=== PATIENT | female | born 1985 | race Caucasian/White ===

== ENCOUNTER 2024-10-09 21:37 | Emergency (ER) | payer OTHER ==
--- NOTE | 2024-10-09 21:51 | ED ---
Female Urogenital HPI - General Source: patient, RN notes reviewed Mode of arrival: EMS <Dhara Alanis - Last Filed: 10/09/24 23:44> <Angely Peralta - Last Filed: 10/10/24 00:24> - General Chief complaint: Vaginal Bleeding Stated complaint: Transfer Time Seen by Provider: 10/09/24 21:42 - History of Present Illness Initial comments: This is a 39-year-old female with a history of hepatitis C, [id number], presenting to the emergency department from [facility] with concerns of vaginal bleeding. Patient states over the past 2 days she has had light vaginal spotting however today has been having heavy vaginal bleeding with passage of clots. She denies abdominal pain, suprapubic/pelvic cramping, dysuria, increased urinary frequency or urgency, flank pain, vaginal discharge or odor. 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 She states that she had a bite injury of her labia minora that occurred in May that has never been evaluated. Patient d enies fevers, chills, nausea or vomiting. ParaGard IUD in place. (Dhara Alanis) - Related Data Allergies Allergy/AdvReac Type Severity Reaction Status Date / Time Penicillins Allergy Anaphylaxis Verified 10/09/24 21:44 Review of Systems ROS Other: All systems not noted in ROS Statement are negative. <Dhara Alanis - Last Filed: 10/09/24 23:44> ROS Other: All systems not noted in ROS Statement are negative. <Angely Peralta - Last Filed: 10/10/24 00:24> ROS Statement: Those systems with pertinent positive or pertinent negative responses have been documented in the HPI. Past Medical History Additional Past Medical History / Comment(s): Hep C, past IV drug use-sober since 10/02/24 Past Surgical History: Cholecystectomy Past Psychological History: Bipolar Smoking Status: Current every day smoker Past Drug Use History: IV Drug Use <Dhara Alanis - Last Filed: 10/09/24 23:44> General Exam General appearance: alert, in no apparent distress Neck exam: Present: normal inspection. Absent: tenderness, meningismus, lymphadenopathy Respiratory exam: Present: normal lung sounds bilaterally. Absent: respiratory distress, wheezes, rales, rhonchi, stridor Cardiovascular Exam: Present: regular rate, normal rhythm, normal heart sounds. Absent: systolic murmur, diastolic murmur, rubs, gallop, clicks GI/Abdominal exam: Present: soft, normal bowel sounds. Absent: distended, tenderness, guarding, rebound, rigid Speculum exam: Present: vaginal bleeding. Absent: vaginal discharge, cervical discharge, foreign body By manual exam: Present: normal by manual exam. Absent: cervical motion tenderness, adnexal tenderness Extremities exam: Present: normal inspection, full ROM, normal capillary refill. Absent: tenderness, pedal edema, joint swelling, calf tenderness Back exam: Present: normal inspection. Absent: CVA tenderness (R), CVA tenderness (L) Skin exam: Present: warm, dry, intact, normal color. Absent: rash <Dhara Alanis - Last Filed: 10/09/24 23:44> Course Vital Signs 10/09/24 10/09/24 21:38 22:59 Temperature 98.3 F Pulse Rate 72 79 Respiratory 18 18 Rate Blood Pressure 151/111 160/85 O2 Sat by Pulse 99 99 Oximetry Medical Decision Making - Lab Data Result diagrams: 10/09/24 22:37 10/09/24 22:37 <Dhara Alanis - Last Filed: 10/09/24 23:44> - Lab Data Result diagrams: 10/09/24 22:37 10/09/24 22:37 <Angely Peralta - Last Filed: 10/10/24 00:24> - Medical Decision Making Was pt. sent in by a medical professional or institution ([facility], [facility], urgent care, hospital, or [place]...) When possible be specific @ -Patient was sent in by [facility] with concerns for vaginal bleeding. Did you speak to anyone other than the patient for history (EMS, parent, family, police, friend...)? What history was obtained from this source @ -[No] Did you review nursing and triage notes (agree or disagree)? Why? @ -[I reviewed and agree with nursing and triage notes] Were old charts reviewed (outside hosp., previous admission, EMS record, old EKG, old radiological studies, urgent care reports/EKG's, [place] health [place] records)? Report findings @ -[No old charts were reviewed] Differential Diagnosis (chest pain, altered mental status, abdominal pain women, abdominal pain men, vaginal bleeding, weakness, fever, dyspnea, syncope, headache, dizziness, GI bleed, back pain, seizure, CVA, palpatations, mental health, musculoskeletal)? @ -Differential Vaginal Bleeding: Spontaneous , threatened , molar , ectopic , bloody show, incompetent cervix, abruptioplacenta, placenta previa, uterine rupture, dysfunctional uterine bleeding, hemorrhage, uterine fibroids, this is not meant to be an all-inclusive list. EKG interpreted by me (3pts min.). @ -none X-rays interpreted by me (1pt min.). @ -[None done] CT interpreted by me (1pt min.). @ -[None done] U/S interpreted by me (1pt. min.). @ -[None done] What testing was considered but not performed or refused? (CT, X-rays, U/S, labs)? Why? @ -[None] What meds were considered but not given or refused? Why? @ -[None] Did you discuss the management of the patient with other professionals (professionals i.e. , PA, [facility], lab, RT, psych nurse, social service director, foundation relations director, teacher, control officer manager, case operator)? Give summary @ -[No] Was smoking cessation discussed for >3mins.? @ -[No] Was critical care preformed (if so, how long)? @ -[No] Were there social determinants of health that impacted care today? How? (Homelessness, low income, unemployed, alcoholism, drug addiction, transportation, low edu. Level, literacy, decrease access to med. care, snf, rehab)? @ -[No] Was there de-escalation of care discussed even if they declined (Discuss DNR or withdrawal of care, Hospice)? DNR status @ -[No] What co-morbidities impacted this encounter? (DM, HTN, Smoking, COPD, CAD, Cancer, CVA, ARF, Chemo, Hep., AIDS, mental health diagnosis, sleep apnea, morbid obesity)? @ -[None] Was patient admitted / discharged? Hospital course, mention meds given and route, prescriptions, significant lab abnormalities, going to OR and other pertinent info. @ -39-year-old female presenting to the emergency department from [facility] for menorrhagia. Patient is hypertensive on arrival with blood pressure 151/111. Abdominal examination completed with no tenderness. Pelvic examination completed with nurse Villegas at bedside reveals vaginal bleeding with a right sided labia majora deformity with no signs of infection, purulence. Patient was offered pain medication however declined saying that she is in no pain. CBC reveals a stable hemoglobin of 12.1. patient is signed out to Angely Peralta PA-C pending UA and US results and disposition. Undiagnosed new problem with uncertain prognosis? @ -[No] Drug Therapy requiring intensive monitoring for toxicity (Heparin, Nitro, Insulin, Cardizem)? @ -[No] Were any procedures done? @ -[No] Diagnosis/symptom? @ -[default] Acute, or Chronic, or Acute on Chronic? @ -[default] Uncomplicated (without systemic symptoms) or Complicated (systemic symptoms)? @ -[default] Side effects of treatment? @ -[No] Exacerbation, Progression, or Severe Exacerbation? @ -[No] Poses a threat to life or bodily function? How? (Chest pain, [place], [place], pneumonia, PE, COPD, DKA, ARF, appy, cholecystitis, CVA, Diverticulitis, Homicidal, Suicidal, threat to staff... and all critical care pts) @ -[No] (Dhara Alanis) Was pt. sent in by a medical professional or institution ([facility], [facility], urgent care, hospital, or [place]...) When possible be specific @ -Sent by [facility] Did you speak to anyone other than the patient for history (EMS, parent, family, police, friend...)? What history was obtained from this source @ -No Did you review nursing and triage notes (agree or disagree)? Why? @ -I reviewed and agree with nursing and triage notes Were old charts reviewed (outside hosp., previous admission, EMS record, old EKG, old radiological studies, urgent care reports/EKG's, [place] records)? Report findings @ -No old charts were reviewed Differential Diagnosis (chest pain, altered mental status, abdominal pain women, abdominal pain men, vaginal bleeding, weakness, fever, dyspnea, syncope, headache, dizziness, GI bleed, back pain, seizure, CVA, palpatations, mental h ealth, musculoskeletal)? @ -Differential Vaginal Bleeding: Spontaneous , threatened , molar , ectopic , bloody show, incompetent cervix, abruptioplacenta, placenta previa, uterine rupture, dysfunctional uterine bleeding, hemorrhage, uterine fibroids, this is not meant to be an all-inclusive list. EKG interpreted by me (3pts min.). @ -None X-rays interpreted by me (1pt min.). @ -None done CT interpreted by me (1pt min.). @ -None done U/S interpreted by me (1pt. min.). @ -Pelvic ultrasound reveals no acute process What testing was considered but not performed or refused? (CT, X-rays, U/S, labs)? Why? @ -None What meds were considered but not given or refused? Why? @ -None Did you discuss the management of the patient with other professionals (pr ofessionals i.e. , PA, [employer] [facility], lab, RT, psych nurse, social service director, foundation relations director, teacher, control officer manager, case operator)? Give summary @ -No Was smoking cessation discussed for >3mins.? @ -No Was critical care preformed (if so, how long)? @ -No Were there social determinants of health that impacted care today? How? (Homelessness, low income, unemployed, alcoholism, drug addiction, transportation, low edu. Level, literacy, decrease access to med. care, snf, rehab)? @ -No Was there de-escalation of care discussed even if they declined (Discuss DNR or withdrawal of care, Hospice)? DNR status @ -No What co-morbidities impacted this encounter? (DM, HTN, Smoking, COPD, CAD, Cancer, CVA, ARF, Chemo, Hep., AIDS, mental health diagnosis, sleep apnea, morbid obesity)? @ -None Was patient admitted / discharged? Hospital course, mention meds given and route, prescriptions, significant lab abnormalities, going to OR and other pertinent info. @ -Discharge. 39-year-old female presenting for heavy vaginal bleeding x 1 day. Patient is signed out to me pending pelvic ultrasound and disposition. Lab work largely unremarkable. Hemoglobin stable at 12. Urine negative. Urinalysis reveals large amount of blood no indication of urinary tract infection. Pelvic ultrasound reveals no acute process. Discussed negative results with patient. Discussed diagnosis of menorrhagia. Appropriate return precautions and follow-up care discussed. Patient is agreeable to plan. Case was discussed with my ED attending Dr. Flannery. Undiagnosed new problem with uncertain prognosis? @ -No Drug Therapy requiring intensive monitoring for toxicity (Heparin, Nitro, Insulin, Cardizem)? @ -No Were any procedures done? @ -No Diagnosis/symptom? @ -Menorrhagia Acute, or Chronic, or Acute on Chronic? @ -Acute Uncomplicated (without systemic symptoms) or Complicated (systemic symptoms)? @ -Uncomplicated Side effects of treatment? @ -No Exacerbation, Progression, or Severe Exacerbation? @ -No Poses a threat to life or bodily function? How? (Chest pain, [place], [place], pneumonia, PE, COPD, DKA, ARF, appy, cholecystitis, CVA, Diverticulitis, Homicidal, Suicidal, threat to staff... and all critical care pts) @ -No (Angely Peralta) - Lab Data Lab Results 10/09/24 10/09/24 10/09/24 Range/Units 22:37 22:37 22:37 WBC 8.54 (4.50-10.00) 10*3/uL RBC 3.90 L (4.10-5.20) 10*6/uL Hgb 12.1 (12.0-15.0) g/dL Hct 35.9 L (37.2-46.3) % MCV 92.1 (80.0-97.0) fL MCH 31.0 (27.0-32.0) pg MCHC 33.7 (32.0-37.0) g/dL Plt Count 403 (140-440) 10*3/uL MPV 9.2 L (9.5-12.2) fL Immature Gran % (Auto) 0.2 % Neutrophils % 48.7 % Lymphocytes % 38.8 % Monocytes % 10.2 % Eosinophils % 1.6 % Basophils % 0.5 % Immature Gran # 0.02 (0.00-0.04) 10*3/uL Neutrophils # 4.16 (1.80-7.70) 10*3/uL Lymphocytes # 3.31 (0.90-5.00) 10*3/uL Monocytes # 0.87 (0.20-1.00) 10*3/uL Eosinophils # 0.14 (0.04-0.35) 10*3/uL Basophils # 0.04 (0.00-0.10) 10*3/uL Sodium (137-145) mmol/L Potassium (3.5-5.1) mmol/L Chloride (98-107) mmol/L Carbon Dioxide (22-30) mmol/L Anion Gap mmol/L BUN (7-17) mg/dL Creatinine (0.52-1.04) mg/dL Est GFR (CKD-EPI)AfAm (>60 ml/min/1.73 sqM) Est GFR (CKD-EPI)NonAf (>60 ml/min/1.73 sqM) Glucose (74-99) mg/dL Calcium (8.4-10.2) mg/dL Total Bilirubin (0.2-1.3) mg/dL AST (14-36) U/L ALT (4-34) U/L Alkaline Phosphatase (38-126) U/L Total Protein (6.3-8.2) g/dL Albumin (3.5-5.0) g/dL HCG, Quant mIU/mL Urine Color Light Yellow Urine Appearance Clear (Clear) Urine pH 5.5 (5.0-8.0) Ur Specific Weld 1.021 (1.001-1.035) Urine Protein Negative (Negative) Urine Glucose (UA) Negative (Negative) Urine Ketones Negative (Negative) Urine Blood Large H (Negative) Urine Nitrite Negative (Negative) Urine Bilirubin Negative (Negative) Urine Urobilinogen <2.0 (<2.0) mg/dL Ur Leukocyte Esterase Negative (Negative) Urine RBC >182 H (0-5) /hpf Urine WBC <1 (0-5) /hpf Ur Squamous Epith Cells 1 (0-4) /hpf Urine Mucus Rare H (None) /hpf Urine Yeast (Budding) Occasional H (None) /hpf Urine HCG, Qual Not Detected (Not Detectd) 10/09/24 Range/Units 22:37 WBC (4.50-10.00) 10*3/uL RBC (4.10-5.20) 10*6/uL Hgb (12.0-15.0) g/dL Hct (37.2-46.3) % MCV (80.0-97.0) fL MCH (27.0-32.0) pg MCHC (32.0-37.0) g/dL Plt Count (140-440) 10*3/uL MPV (9.5-12.2) fL Immature Gran % (Auto) % Neutrophils % % Lymphocytes % % Monocytes % % Eosinophils % % Basophils % % Immature Gran # (0.00-0.04) 10*3/uL Neutrophils # (1.80-7.70) 10*3/uL Lymphocytes # (0.90-5.00) 10*3/uL Monocytes # (0.20-1.00) 10*3/uL Eosinophils # (0.04-0.35) 10*3/uL Basophils # (0.00-0.10) 10*3/uL Sodium 137 (137-145) mmol/L Potassium 4.5 (3.5-5.1) mmol/L Chloride 102 (98-107) mmol/L Carbon Dioxide 26 (22-30) mmol/L Anion Gap 9 mmol/L BUN 16 (7-17) mg/dL Creatinine 0.47 L (0.52-1.04) mg/dL Est GFR (CKD-EPI)AfAm >90 (>60 ml/min/1.73 sqM) Est GFR (CKD-EPI)NonAf >90 (>60 ml/min/1.73 sqM) Glucose 84 (74-99) mg/dL Calcium 9.9 (8.4-10.2) mg/dL Total Bilirubin 0.3 (0.2-1.3) mg/dL AST 25 (14-36) U/L ALT 25 (4-34) U/L Alkaline Phosphatase 101 (38-126) U/L Total Protein 7.4 (6.3-8.2) g/dL Albumin 4.2 (3.5-5.0) g/dL HCG, Quant <2.4 mIU/mL Urine Color Urine Appearance (Clear) Urine pH (5.0-8.0) Ur Specific Weld (1.001-1.035) Urine Protein (Negative) Urine Glucose (UA) (Negative) Urine Ketones (Negative) Urine Blood (Negative) Urine Nitrite (Negative) Urine Bilirubin (Negative) Urine Urobilinogen (<2.0) mg/dL Ur Leukocyte Esterase (Negative) Urine RBC (0-5) /hpf Urine WBC (0-5) /hpf Ur Squamous Epith Cells (0-4) /hpf Urine Mucus (None) /hpf Urine Yeast (Budding) (None) /hpf Urine HCG, Qual (Not Detectd) Disposition <Dhara Alanis - Last Filed: 10/09/24 23:44> Is patient prescribed a controlled substance at d/c from ED?: No Time of Disposition: 00:16 <Angely Peralta - Last Filed: 10/10/24 00:24> Clinical Impression: Menorrhagia Disposition: HOME SELF-CARE Condition: Stable Instructions (If sedation given, give patient instructions): Menorrhagia (ED) Additional Instructions: Please return to the Emergency Department if symptoms worsen or any other concerns. Referrals: None,Stated [REFERRING] - 1-2 days
[2024-10-09 21:54] VITALS: RESP 18; TEMP 98.3
[2024-10-09 23:03] LABS: Basophils # (A) 0.04 10*3/uL (0.00-0.10); Basophils % (A) 0.5 %; Eosinophils # (A) 0.14 10*3/uL (0.04-0.35); Eosinophils % (A) 1.6 %; HCT 35.9 % (37.2-46.3); HGB 12.1 g/dL (12.0-15.0); Lymphocytes # (A) 3.31 10*3/uL (0.90-5.00); Lymphocytes % (A) 38.8 %; MCHC 33.7 g/dL (32.0-37.0); MCV 92.1 fL (80.0-97.0); Mean Platelet Volume 9.2 fL (9.5-12.2); Monocytes # (A) 0.87 10*3/uL (0.20-1.00); Monocytes % (A) 10.2 %; Neutrophils # (A) 4.16 10*3/uL (1.80-7.70); Neutrophils % (A) 48.7 %; Platelet Count 403 10*3/uL (140-440); RDW 12.4 % (11.5-14.5); WBC 8.54 10*3/uL (4.50-10.00)
[2024-10-09 23:42] LABS: ALT 25 U/L (4-34); AST 25 U/L (14-36); African American GFR (CKD) >90 (>60 ml/min/1.73 sqM); Albumin 4.2 g/dL (3.5-5.0); Alkaline Phosphatase 101 U/L (38-126); Anion Gap 9 mmol/L; Blood Urea Nitrogen 16 mg/dL (7-17); Calcium 9.9 mg/dL (8.4-10.2); Carbon Dioxide 26 mmol/L (22-30); Chloride 102 mmol/L (98-107); Glucose 84 mg/dL (74-99); Non-African American GFR(CKD) >90 (>60 ml/min/1.73 sqM); Potassium 4.5 mmol/L (3.5-5.1); Sodium 137 mmol/L (137-145); Total Bilirubin 0.3 mg/dL (0.2-1.3); Total Protein 7.4 g/dL (6.3-8.2)
--- NOTE | 2024-10-09 23:49 | US ---
EXAMINATION TYPE: US transvaginal DATE OF EXAM: 10/09/2024 COMPARISON: NONE CLINICAL INDICATION: Female, 39 years old with history of Menorrhagia; patient states heavy bleeding. IUD TECHNIQUE: Transvaginal (TV). Transvaginal sonographic images were medically necessary to better assess the following anatomy: Endo metrium Doppler imaging: Color Doppler Images were obtained. Spectral doppler images were obtained. FINDINGS: Date of LMP: 10/07/2024 EXAM MEASUREMENTS: Uterus: 6.8 x 3.0 x 2.4 cm Endometrial Stripe: 0.3 cm Right Ovary: 3.4 x 1.4 x 2.3 cm Left Ovary: 2.7 x 1.4 x 1.8 cm 1. Uterus: Anteverted wnl 2. Endometrium: Thickness wnl. The IUD appears to positioned low in the endometrial canal 3. Right Ovary: wnl 4. Left Ovary: wnl Spectral, color and waveform doppler imaging shows good arterial and venous flow within the ovaries ; there is no evidence for ovarian torsion. 5. Bilateral Adnexa: wnl as best seen 6. Posterior cul-de-sac: wnl IMPRESSION: 1. No evidence for acute process. 2. Appropriate arterial and venous spectral waveforms ovaries. 3. Endometrium within normal limits for thickness. 4. IUD in low position in the endometrial canal. [facility], , 10/09/2024 11:46 PM
[2024-10-09 23:50] LABS: HCG,Quantitative Serum <2.4 mIU/mL
[2024-10-10 00:10] LABS: Appearance,Urine Clear (Clear); Bilirubin,Urine Negative (Negative); Blood,Urine Large (Negative); Budding Yeast,Urine Occasional /hpf; Color,Urine Light Yellow; Glucose,Urine (UA) Negative (Negative); Ketones,Urine Negative (Negative); Leukocyte Esterase,Urine Negative (Negative); Mucus,Urine Rare /hpf; Nitrite,Urine Negative (Negative); PH, Urine 5.5 (5.0-8.0); Protein,Urine Negative (Negative); RBC,Urine >182 /hpf (0-5); Specific Gravity,Urine 1.021 (1.001-1.035); Squamous Epithelial Cell,Urine 1 /hpf (0-4); Urobilinogen,Urine <2.0 mg/dL (<2.0); WBC,Urine <1 /hpf (0-5)
[2024-10-10 00:43] VITALS: BP 145/82; PULSE 74
== END 2024-10-10 00:43 | disposition home or self-care (01) ==
LOC: EC 21:37
DX: N92.0 Excessive and frequent menstruation with regular cycle (principal); F17.200 Nicotine dependence, unspecified, uncomplicated; Z88.0 Allergy status to penicillin
CPT/HCPCS: 36415; 76830; 80053; 81001; 81025; 84702; 85025; 93975; 99284